=== PATIENT | male | born 1985 | race Caucasian/White ===

== ENCOUNTER 2020-08-17 17:20 | Emergency (ER) | payer SELFPAY ==
--- NOTE | 2020-08-17 18:38 | EDM.PDOC ---
ED HPI GENERAL MEDICAL PROBLEM - General Chief Complaint: Upper Extremity Injury/Pain Stated Complaint: BOTH HANDS NUMB Time Seen by Provider: 08/17/20 18:14 Source of Information: Reports: Patient History Limitations: Reports: No Limitations - History of Present Illness INITIAL COMMENTS - FREE TEXT/NARRATIVE: The patient presents with bilateral forearm and hand numbness and pain. 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 For the past 3 weeks he had numbness and pain to both forearms and hands. He is also dropping things. He has no other symptoms. In the middle of the night he wakes up with more pain and numbness. Onset: Gradual Duration: Week(s): (3) Location: Reports: Upper Extremity, Left, Upper Extremity, Right Quality: Reports: Sharp Severity: Severe Improves with: Reports: None Worsens with: Reports: None Associated Symptoms: Reports: No Other Symptoms Treatments TEST DEVELOPER: Reports: Other (see below) Other Treatments TEST DEVELOPER: tylenol Bilateral Hand Pain Score (Numeric/FACES): 10 - Related Data Allergies Allergy/AdvReac Type Severity Reaction Status Date / Time No Known Allergies Allergy Verified 08/17/20 18:13 Home Meds: Home Meds Hydrocodone/Acetaminophen [Hydrocodone-Acetamin 5-325 mg] 1 - 2 each PO Q6HR PRN #20 tablet 08/17/20 [Rx] Past Medical History - Past Health History Medical/Surgical History: Denies Medical/Surgical History Social & Family History - Tobacco Use Smoking Status *Q: Current Every Day Smoker Years of Tobacco use: 20 Packs/Tins Daily: 1 - Caffeine Use Caffeine Use: Reports: Tea - Recreational Drug Use Recreational Drug Use: No Review of Systems - Review of Systems Review Of Systems: See Below Constitutional: Reports: No Symptoms Eyes: Reports: No Symptoms Ears: Reports: No Symptoms Nose: Reports: No Symptoms Mouth/Throat: Reports: No Symptoms Respiratory: Reports: No Symptoms Cardiovascular: Reports: No Symptoms GI/Abdominal: Reports: No Symptoms Genitourinary: Reports: No Symptoms Musculoskeletal: Reports: Other (Numbness and pain to both hands) ED EXAM, GENERAL - Physical Exam Exam: See Below Exam Limited By: No Limitations General Appearance: Alert, No Apparent Distress Ears: Normal External Exam Nose: Normal Inspection Head: Atraumatic, Normocephalic Neck: Normal Inspection Respiratory/Chest: No Respiratory Distress, Lungs Clear, Normal Breath Sounds Cardiovascular: Regular Rate, Rhythm, No Edema, No Murmur GI/Abdominal: Soft, Non-Tender, No Organomegaly, No Mass Extremities: Other (Numbness to the right and left hand exept the little finger and half of the 4th finger. Mild weakness to both hands.) Course - Vital Signs Last Recorded V/S: Last Vital Signs Temp 97.7 F 08/17/20 18:16 Pulse 76 08/17/20 18:16 Resp 20 08/17/20 18:16 BP 138/81 08/17/20 18:16 Pulse Ox 98 08/17/20 18:16 - Orders/Labs/Meds Orders: Active Orders 24 hr Category Date Time Status Durable Medical Equipment for Discharge [DME for Oth 08/17/20 18:34 Ordered Discharge] [COMM] Stat - Re-Assessments/Exams Free Text/Narrative Re-Assessment/Exam: 08/17/20 18:41 He has carpal tunnel syndrome. I will get him in wrist splints and something for pain. I will have him follow up with Dr Estrada. Departure - Departure Time of Disposition: 18:45 Disposition: Home, Self-Care 01 Condition: Good Clinical Impression: Carpal tunnel syndrome of left wrist, Carpal tunnel syndrome of right wrist - Discharge Information *PRESCRIPTION DRUG MONITORING PROGRAM REVIEWED*: No *COPY OF PRESCRIPTION DRUG MONITORING REPORT IN PATIENT MARE: No Prescriptions: Hydrocodone/Acetaminophen [Hydrocodone-Acetamin 5-325 mg] 1 - 2 each PO Q6HR PRN #20 tablet PRN Reason: Pain Referrals: PCP,None [Primary Care Provider] - Chito Estrada MD [Physician] - 1 Week Forms: ED Department Discharge Additional Instructions: Wear the wrist splints as much as you can for a few weeks. Follow up with Dr Tia kauffman within a week. Try motrin or tylenol for pain. If that does not help, try the hydrocodone. Please return if you are worse. Sepsis Event Note (ED) - Evaluation Sepsis Screening Result: No Definite Risk - Focused Exam Vital Signs: Vital Signs Temp Pulse Resp BP Pulse Ox 08/17/20 18:16 97.7 F 76 20 138/81 98 - My Orders Last 24 Hours: My Active Orders 08/17/20 18:34 Durable Medical Equipment for Discharge [DME for Discharge] [COMM] Stat - Assessment/Plan Last 24 Hours: My Active Orders 08/17/20 18:34 Durable Medical Equipment for Discharge [DME for Discharge] [COMM] Stat
== END 2020-08-17 19:27 | disposition home or self-care (01) ==
LOC: JD.ED 17:20
DX: G56.03 Carpal tunnel syndrome, bilateral upper limbs (principal); F17.210 Nicotine dependence, cigarettes, uncomplicated
CPT/HCPCS: 99283

== ENCOUNTER 2020-09-22 10:44 | Emergency (ER) | payer SELFPAY ==
[2020-09-22] MEDS ORDERED: Ketorolac 30 MG/ML SDV IM ONE (11:47)
[2020-09-22] MEDS ORDERED: Orphenadrine 100 MG Tab.ER PO ONE (11:47)
--- NOTE | 2020-09-22 11:59 | EDM.PDOC ---
ED HPI GENERAL MEDICAL PROBLEM - General Chief Complaint: Back Pain or Injury Stated Complaint: BACK PAIN Time Seen by Provider: 09/22/20 11:02 Source of Information: Reports: Patient, RN Notes Reviewed History Limitations: Reports: No Limitations - History of Present Illness INITIAL COMMENTS - FREE TEXT/NARRATIVE: Patient is a 34-year-old male who presents to the ED for the evaluation of some right sided mid back pain. States he was getting ready for work, putting his boots on, when he thinks he may have put the right side of his mid upper back out. He states that the pain seems to radiate from about his right nipple line down to his right umbilical line on the right flank. He took ibuprofen at 4 AM this morning when he woke up, states did not really help much. He states that when he takes a deep breath, it seems to hurt worse, but there is always a dull ache present he notes when he flexes to his right side and takes pressure off of that area, it seems to make the pain better. Patient denies any other sick-like symptoms, fever/chills, cough/shortness of breath, nausea/vomiting/diarrhea. He states that he has felt pain like this at one other time in his life, when he put his lower back out. 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 Other Treatments MECHANICAL MAINTENANCE SUPERVISOR: 1200mg Right Back Pain Score (Numeric/FACES): 8 - Related Data Allergies Allergy/AdvReac Type Severity Reaction Status Date / Time No Known Allergies Allergy Verified 09/22/20 11:05 Home Meds: Home Meds Hydrocodone/Acetaminophen [Hydrocodone-Acetamin 5-325 mg] 1 - 2 each PO Q6HR PRN #20 tablet 08/17/20 [Rx] Ketorolac [Toradol] 10 mg PO Q6H 3 Days #12 tab 09/22/20 [Rx] Orphenadrine [Norflex] 100 mg PO BID PRN #20 tab 09/22/20 [Rx] Past Medical History - Past Health History Medical/Surgical History: Denies Medical/Surgical History Musculoskeletal History: Reports: Other (See Below) Other Musculoskeletal History: Acute back pain incident in 2011 - Past Surgical History Musculoskeletal Surgical History: Reports: None Social & Family History - Tobacco Use Tobacco Use Status *Q: Current Every Day Tobacco User Years of Tobacco use: 19 Packs/Tins Daily: 1.5 Used Tobacco, but Quit: No Second Hand Smoke Exposure: No - Caffeine Use Caffeine Use: Reports: Coffee, Soda, Tea - Recreational Drug Use Recreational Drug Use: No ED ROS GENERAL - Review of Systems Review Of Systems: Comprehensive ROS is negative, except as noted in HPI. ED EXAM, UPPER BACK/NECK PAIN - Physical Exam Exam: See Below Exam Limited By: No Limitations General Appearance: Alert, WD/WN, No Apparent Distress Head Exam: Atraumatic, Normocephalic Neck Exam: Non-Tender, Full Range of Motion, Normal Alignment Nexus Criteria: No: Posterior, Midline Cervical Tenderness, Evidence of Intoxication, Altered Level of Consciousness, Focal Neurological Deficit, Painful Distraction Injuries Cardiovascular/Respiratory: Regular Rate, Rhythm, No M/R/G, Normal Peripheral Pulses GI/Abdominal: Normal Bowel Sounds, Soft, Non-Tender, No Organomegaly, No Distention, No Mass Extremities: Normal Inspection, Normal Capillary Refill, Limited Range of Motion (of mid-upper back d/t pain, he has quite a diffuse muscle spasm in his mid back from around his nipple line to umbilicus.) 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 As Tested, No Motor/Sensory Deficits, Alert, Normal Mood/Affect, Oriented x 3 Psychiatric: Normal Affect, Normal Mood Skin Exam: Normal Color, Warm/Dry Course - Vital Signs Last Recorded V/S: Last Vital Signs Temp 97.4 F 09/22/20 10:56 Pulse 73 09/22/20 10:56 Resp 18 09/22/20 10:56 BP 120/87 09/22/20 10:56 Pulse Ox 99 09/22/20 10:56 - Orders/Labs/Meds Meds: Medications Discontinued Medications Generic Name Dose Route Start Last Admin Trade Name Ashok PRN Reason Stop Dose Admin Ketorolac Tromethamine 60 mg 09/22/20 11:47 09/22/20 12:01 Toradol IM 09/22/20 11:48 60 mg ONETIME ONE Administration Orphenadrine Citrate 100 mg 09/22/20 11:47 09/22/20 12:01 Norflex PO 09/22/20 11:48 100 mg ONETIME ONE Administration - Re-Assessments/Exams Free Text/Narrative Re-Assessment/Exam: 09/22/20 11:59 Patient presents to the ED for evaluation of his ongoing mid upper back pain. I do believe he has maybe pulled a muscle causing diffuse muscle spasm. He will receive an injection of Toradol, and Norflex for initial management. 09/22/20 12:43 Patient was reassessed at bedside, states he would we will trial him on oral Toradol, and Norflex for outpatient management and have him follow-up with his primary care provider next week if he is not feeling much better. Departure - Departure Time of Disposition: 12:43 Disposition: Home, Self-Care 01 Condition: Good Clinical Impression: Spasm of thoracic back muscle - Discharge Information *PRESCRIPTION DRUG MONITORING PROGRAM REVIEWED*: No *COPY OF PRESCRIPTION DRUG MONITORING REPORT IN PATIENT MARE: No Prescriptions: Orphenadrine [Norflex] 100 mg PO BID PRN #20 tab PRN Reason: Spasms Ketorolac [Toradol] 10 mg PO Q6H 3 Days #12 tab Instructions: Muscle Strain, [id number] Referrals: PCP,None [Primary Care Provider] - Forms: ED Department Discharge, ED Return to Work/School Form Additional Instructions: You have been evaluated in the ED for your middle back pain. It is highly likely that you have either sprained or strained a thoracic back muscle, causing diffuse muscle spasm, which is causing your pain. Please use ice/heat as tolerated to the affected area. Please try to elevate the affected area to relieve swelling. You were given a prescription for Toradol, 1 tablet every 6 hours for pain relief, please only use this for the first 3 days, recommend you take this medication with a meal. You were given a prescription for Norflex, for muscle spasms, 1 tab 2 times a day as needed for further muscle spasms. You may take Tylenol 500 mg or ibuprofen 600mg q6 hrs for pain relief. Please do so until you have a tolerable level of pain with activity. Do not exceed 4000mg Tylenol or 3200mg ibuprofen in a 24 hour time period. Please return to ED if your symptoms should change or worsen. Sepsis Event Note (ED) - Evaluation Sepsis Screening Result: No Definite Risk - Focused Exam Vital Signs: Vital Signs Temp Pulse Resp BP Pulse Ox 09/22/20 10:56 97.4 F 73 18 120/87 99
== END 2020-09-22 13:46 | disposition home or self-care (01) ==
LOC: JD.ED 10:44
DX: M62.830 Muscle spasm of back (principal); F17.210 Nicotine dependence, cigarettes, uncomplicated
CPT/HCPCS: 96372; 99283; A9270; J1885